=== PATIENT | female | born 1935 | race Caucasian/White ===

== ENCOUNTER 2016-10-29 20:04 | Inpatient (IN) | payer MEDICARE, BC ==
--- NOTE | ~2016-10-29 | DS ---
Discharge Summary [address] [place]. [address] NAME: SOCORRO HUGHES : 34 STATUS : ADM IN [facility]#: [id number] AGE: 81 ADM/REG DATE : 10/29/16 MR#: [id number] REPORT SERV DATE: 11/02/16 DICTATED BY: GABRIEL GUZMAN DATE: 11/02/16 REPORT STATUS : Draft TRANSCRIBED BY: MODL DATE: 11/02/16 ADMISSION DATE: 10/29/2016 DISCHARGE DATE: 11/02/2016 ADMITTING DIAGNOSIS: Subacute stroke. DISCHARGE DIAGNOSES: 1. No evidence of acute stroke. 2. Severe polyarticular osteoarthritis including hips, knees, and ankles including Charcot ankles bilaterally with reduced mobility. 3. Severe chronic anxiety. 4. Recent urinary tract infection, treated. 5. Hypertension. 6. Diet-controlled diabetes. 7. Hypothyroidism. 8. No evidence of seizure disorder, on long-standing chronic Dilantin and phenobarbital at subtherapeutic doses more for comfort than anything. 9. Distant history of upper GI bleed secondary to Dieulafoy's lesion. 10.Severe chronic anxiety. DISCHARGE PLAN: She was transferred to [facility]. DISCHARGE MEDICATION: She was started on aspirin 81 mg daily and atorvastatin 40 mg a day for prevention of stroke. She would continue vitamin D at 1000 units daily, docusate 100 mg daily, Lovenox 40 mg a day for two weeks, gabapentin 100 mg b.i.d., levothyroxine 100 mcg daily, Irene 180 mg daily, Mobic 7.5 mg daily previously prescribed by Dr. Ly, omeprazole 20 mg daily, phenobarbital 32.4 mg daily, Dilantin 100 mg daily, Tramadol q.6 h. p.r.n., valsartan HCT 80/12.5 daily, vitamin D 3000 units daily, and Tylenol p.r.n. HOSPITAL ADMISSION SUMMARY: An 81-year-old, white female, who has been living at home with maximum assistance of two caregivers 24 hours a day with chronic mobility, problems related to severe arthritis, and chronic anxiety who was recently in the office because of polyuria and nocturia. She had urinary tract infection and was on appropriate treatment. Over the several days prior to her admission, she had a marked deterioration in her mobility with some seeming acute right-sided weakness. Caregivers and family were concerned that she had a stroke and brought her to the emergency room for evaluation. See her previously handled admission note by Dr. Flores. LABORATORY DATA: Admission white count 6600, hemoglobin 11.4, hematocrit 33.5, INR 1.0. Sodium 141, potassium 3.8, BUN 13, creatinine 0.86. Magnesium normal. Liver functions normal. Troponin negative. TSH normal. Dilantin and phenobarbital were subtherapeutic as expected, B12 normal, folate normal, ammonia, level normal. Urinalysis was unremarkable. Cholesterol 217, HDL 79, LDL 117, and triglycerides 109. RADIOGRAPHIC STUDIES: Included CT of the head which showed moderate chronic changes but no Discharge Summary [address] [address] NAME: SOCORRO HUGHES : 34 STATUS : ADM IN [facility]#: [id number] AGE: 81 ADM/REG DATE : 10/29/16 MR#: [id number] REPORT SERV DATE: 11/02/16 DICTATED BY: GABRIEL GUZMAN DATE: 11/02/16 REPORT STATUS : Draft TRANSCRIBED BY: RUBÉN DATE: 11/02/16 acute findings. Chest x-ray only showed low lung volumes with atelectasis. Hip film and pelvis film showed no fracture. Carotid ultrasound showed grade 1 disease bilaterally. MRI of the head with MRA showed no evidence of hemorrhage or acute stroke with a negative MRA of the hughes of Keller. MRA of the neck was also unremarkable. HOSPITAL COURSE: The patient was admitted with seemingly fairly rapid weakness, predominantly right-sided, and the concern was that she was having a stroke. Radiographic studies did not suggest a stroke and her clinical course to me did not suggest a stroke. Aspirin and statin therapies were added to her baseline medications for prevention. Her primary problem is orthopedic in character with severe arthritis and limitations due to hip, knee, and ankle arthritis including Charcot ankles. Physical Therapy evaluated her and felt that she was not a candidate for inpatient rehab, but was more a candidate for alf rehab, and arrangements were made to transfer her to [facility] where she had been previously. In the past, she had made good enough progress to get back home with the assistance of sitters. Whether this would be accomplished in the future was unclear. The patient's mobility in the past had been limited by what was thought to be Parkinson's, and she underwent a neurologic evaluation by Dr. Vaca at [place]. A therapeutic trial of Sinemet during 2015 did not suggest an improvement, and it was not pursued further at that point. The patient has a long history of anxiety and often is agitated at night and screams out at night. In the distant past, she had been on Lexapro from psychiatrist Dr. Steele, but she has been off that for several years, and this was not restarted during this hospitalization but would be a consideration in the future. The patient recently had severe nocturia with culture documented urinary tract infection which was treated. I did not feel at this time that it was appropriate to start her on any anticholinergic therapy as it might aggravate her mental status. This would be a consideration in the future. At the time of discharge, the patient was at her mental baseline and physical limitations, and arrangements were made for a transfer as above. This was discussed with her power of revenue stamper, represented by her niece Machelle Mcintosh, and her phone number is [phone]. AMANDA/RUBÉN Gabriel Guzman M.D. / [id number] CC: Gabriel Guzman M.D.
[~2016-10-29 20:04] MED LIST: *UNABLE1; AFEDITAB60 MG PO; ASAB PO; CLARIT10 PO; D100 PO; DCN100 PO; DIABET1.25 PO; DIOVAN HCT PO; FERROUS SULF325 M1 PO; GLUCOSAMINE PO; INSNOVR SC; K500 PO; L40 PO; LEXAPRO10 PO; LEXAPRO5 MG PO; MAX25 PO; METAMUCIL CAN7 OZ PO; MICRO-K10 MEQ PO; MOBIC15 MG PO; MULTIPLE VIT PO; MULTIVITAMI1 PO; NEXIUM40 PO; NOVOPEN SC; OS500+D PO; PB30 PO; PHENOBARB32.4 MG OR; PHENOBARB32.4 MG PO; PHENOBARBITAL PO; PREV15 PO; PREV30 PO; SYN1 PO; ULTRACET PO; VITC500 PO; [UNRECOGNIZED DRUG - REMARK]; [UNRECOGNIZED DRUG - REMARK]; [UNRECOGNIZED DRUG - REMARK]
[2016-10-29 20:32] LABS: BASOPHILS 0.5 %; BASOPHILS ABSOLUTE 0.03 10/3/uL (0.0-0.16); EOSINOPHILS 5.6 %; EOSINOPHILS ABSOLUTE 0.37 10/3/uL (0.0-0.53); ER CBC TAT 0 Hrs 07 Mins; HEMOGLOBIN 11.4 g/dL (12.0-16.0); IMMATURE GRANULOCYTES 0.2 %; IMMATURE GRANULOCYTES ABSOLUTE 0.01 10/3/uL (0.0-0.11); LYMPHOCYTES 24.7 %; LYMPHOCYTES ABSOLUTE 1.63 10/3/uL (0.67-4.30); MEAN CORPUSCULAR HEMOGLOB 33.2 pg (26.0-34.0); MEAN PLATELET VOLUME 9.9 fL (9.2-13.0); MONOCYTES 14.1 %; MONOCYTES ABSOLUTE 0.93 10/3/uL (0.21-1.20); NEUTROPHILS 54.9 %; NEUTROPHILS ABSOLUTE 3.63 10/3/uL (2.02-8.40); PLATELET COUNT 183 10/3/uL (150-400); RBC DISTRIBUTION WIDTH 12.9 % (12.0-16.0); RED CELL COUNT 3.43 10/6/uL (4.0-5.6); WHITE BLOOD CELLS 6.6 10/3/uL (4.5-10.5)
[2016-10-29 20:33] LABS: HEMATOCRIT 33.5 % (36.0-48.0); MANUAL DIFF NO %; MEAN CORPUSCULAR VOLUME 97.7 fL (80-100)
[2016-10-29 20:40] LABS: PARTIAL THROMBO TIME 29.5 SEC (22.5-37.2); PROTIME (NOT ORD) 12.9 SEC (12.0-14.5)
[2016-10-29 21:12] LABS: ALBUMIN 3.5 G/DL (3.5-5.0); CALCIUM, SERUM 8.7 MG/DL (8.5-10.4); CHLORIDE, SERUM 100 MMOL/L (96-112); CO2 (CARBON DIOXIDE) 32 MMOL/L (24-34); CREATININE 0.86 MG/DL (0.55-1.02); DILANTIN (PHENYTOIN) 1.8 MCG/ML (10.0-20.0); GFR AFRICAN AMERICAN 73 ML/MIN (>=60); GFR NON AFRICAN AMERICAN 63 ML/MIN (>=60); GLUCOSE, SERUM 98 MG/DL (60-99); POTASSIUM, SERUM 3.8 MMOL/L (3.5-5.3); SGOT(AST) 10 U/L (5-40); SGPT(ALT) 15 U/L (5-65); SODIUM, SERUM 141 MMOL/L (135-148); TOTAL BILIRUBIN 0.3 MG/DL (0-1.2); TOTAL PROTEIN 6.8 G/DL (6.0-8.5); TROPONIN I <0.02 NG/ML (<0.05)
[2016-10-29 21:13] LABS: ALKALINE PHOSPHATASE 76 U/L (45-117); BUN (BLOOD UREA NITROGEN) 13 MG/DL (6-23); DIRECT BILIRUBIN < 0.1 MG/DL (0.0-0.4); INDIRECT BILIRUBIN(NOT ORDER) 0.2 MG/DL (0.1-0.9)
[2016-10-29 21:15] LABS: CHEST PAIN PROFILE TAT 0 Hrs 47 Mins
[2016-10-29 21:23] LABS: ASCORBIC ACID (UR NOT ORDER) 40 (NEG); BILIRUBIN, URINE NEGATIVE (NEG); ER URINALYSIS TAT 0 Hrs 07 Mins; KETONE, URINE NEGATIVE (NEG); LEUKOCYTE ESTERASE(NOT OR NEG (NEG); NITRITE (URINE) NEG (NEG); WBC (NOT ORDERED) (RFLEX) 1 (0-5)
[2016-10-29] MEDS ORDERED: ALLEGRA180 PO (22:41)
[2016-10-29] MEDS ORDERED: SYN1 PO (22:41)
[2016-10-29] MEDS ORDERED: PRILO PO (22:41)
[2016-10-29] MEDS ORDERED: PHENOBARB32.4 MG PO (22:42)
[2016-10-29] MEDS ORDERED: D100 PO (22:42)
[2016-10-29] MEDS ORDERED: DIOVAN HCT PO (22:42)
[2016-10-29] MEDS ORDERED: NEUR100 PO (22:43)
[2016-10-29] MEDS ORDERED: VITC500 PO (22:44)
[2016-10-29] MEDS ORDERED: IRON PO (22:44)
[2016-10-29] MEDS ORDERED: VITAMIN D3 PO (22:44)
[2016-10-29] MEDS ORDERED: DSS PO (22:45)
[2016-10-29] MEDS ORDERED: MOBIC7.5 PO (22:46)
[2016-10-29] MEDS ORDERED: ULTRAM50 PO (22:50)
[2016-10-29] MEDS ORDERED: TYLENOL PM PO (22:50)
[2016-10-29] MEDS ORDERED: ACET500CAP PO (22:51)
[2016-10-30 06:25] LABS: BASOPHILS 0.6 %; BASOPHILS ABSOLUTE 0.04 10/3/uL (0.0-0.16); EOSINOPHILS 5.3 %; EOSINOPHILS ABSOLUTE 0.36 10/3/uL (0.0-0.53); HEMOGLOBIN 11.2 g/dL (12.0-16.0); IMMATURE GRANULOCYTES 0.1 %; IMMATURE GRANULOCYTES ABSOLUTE 0.01 10/3/uL (0.0-0.11); LYMPHOCYTES 32.5 %; MEAN CORPUS HGB CONC 33.9 g/dL (32.0-36.0); MEAN CORPUSCULAR HEMOGLOB 33.2 pg (26.0-34.0); MEAN CORPUSCULAR VOLUME 97.9 fL (80-100); MEAN PLATELET VOLUME 9.6 fL (9.2-13.0); MONOCYTES 13.8 %; MONOCYTES ABSOLUTE 0.93 10/3/uL (0.21-1.20); NEUTROPHILS 47.7 %; NEUTROPHILS ABSOLUTE 3.22 10/3/uL (2.02-8.40); PLATELET COUNT 169 10/3/uL (150-400); RED CELL COUNT 3.37 10/6/uL (4.0-5.6); WHITE BLOOD CELLS 6.8 10/3/uL (4.5-10.5)
[2016-10-30 06:26] LABS: MANUAL DIFF NO %
[2016-10-30 06:48] LABS: BUN (BLOOD UREA NITROGEN) 10 MG/DL (6-23); CALCIUM, SERUM 8.9 MG/DL (8.5-10.4); CHLORIDE, SERUM 103 MMOL/L (96-112); CHOL/HDL RATIO(NOT ORDER) 2.7 (0-5); CHOLESTEROL 217 MG/DL (< 200); CO2 (CARBON DIOXIDE) 29 MMOL/L (24-34); CREATININE 0.71 MG/DL (0.55-1.02); FREE T4 1.12 NG/DL (0.76-1.46); GFR AFRICAN AMERICAN 92 ML/MIN (>=60); GFR NON AFRICAN AMERICAN 79 ML/MIN (>=60); GLUCOSE, SERUM 87 MG/DL (60-99); HDL CHOLESTEROL 79 MG/DL (> 49); LDL CHOLESTEROL 117 MG/DL (< 130); NON-HDL CHOLESTEROL 138 MG/DL (< 160); POTASSIUM, SERUM 3.9 MMOL/L (3.5-5.3); SODIUM, SERUM 142 MMOL/L (135-148); TRIGLYCERIDE 109 MG/DL (< 150); ULTRASENSITIVE TSH 0.959 MCIU/ML (0.358-3.740)
[2016-10-31 05:32] LABS: BASOPHILS 0.5 %; BASOPHILS ABSOLUTE 0.03 10/3/uL (0.0-0.16); EOSINOPHILS 3.4 %; EOSINOPHILS ABSOLUTE 0.19 10/3/uL (0.0-0.53); HEMATOCRIT 32.4 % (36.0-48.0); HEMOGLOBIN 11.2 g/dL (12.0-16.0); IMMATURE GRANULOCYTES 0.4 %; IMMATURE GRANULOCYTES ABSOLUTE 0.02 10/3/uL (0.0-0.11); LYMPHOCYTES 26.5 %; LYMPHOCYTES ABSOLUTE 1.48 10/3/uL (0.67-4.30); MANUAL DIFF NO %; MEAN CORPUS HGB CONC 34.6 g/dL (32.0-36.0); MEAN CORPUSCULAR HEMOGLOB 33.5 pg (26.0-34.0); MEAN PLATELET VOLUME 9.7 fL (9.2-13.0); MONOCYTES 10.9 %; MONOCYTES ABSOLUTE 0.61 10/3/uL (0.21-1.20); NEUTROPHILS 58.3 %; NEUTROPHILS ABSOLUTE 3.26 10/3/uL (2.02-8.40); PLATELET COUNT 174 10/3/uL (150-400); RBC DISTRIBUTION WIDTH 12.5 % (12.0-16.0); RED CELL COUNT 3.34 10/6/uL (4.0-5.6); WHITE BLOOD CELLS 5.6 10/3/uL (4.5-10.5)
[2016-10-31 06:07] LABS: ALBUMIN 3.1 G/DL (3.5-5.0); ALKALINE PHOSPHATASE 67 U/L (45-117); BUN (BLOOD UREA NITROGEN) 7 MG/DL (6-23); CALCIUM, SERUM 8.9 MG/DL (8.5-10.4); CHLORIDE, SERUM 104 MMOL/L (96-112); CO2 (CARBON DIOXIDE) 29 MMOL/L (24-34); CPK 48 U/L (0-200); CREATININE 0.68 MG/DL (0.55-1.02); GFR AFRICAN AMERICAN 94 ML/MIN (>=60); GFR NON AFRICAN AMERICAN 81 ML/MIN (>=60); GLUCOSE, SERUM 88 MG/DL (60-99); POTASSIUM, SERUM 3.9 MMOL/L (3.5-5.3); SGOT(AST) 11 U/L (5-40); SGPT(ALT) 13 U/L (5-65); SODIUM, SERUM 141 MMOL/L (135-148); TOTAL BILIRUBIN 0.2 MG/DL (0-1.2); TOTAL PROTEIN 6.1 G/DL (6.0-8.5)
[2016-10-31 06:08] LABS: FOLATE 19.9 NG/ML (>5.2)
[2016-11-12] MEDS ORDERED: ASAB PO (12:43)
[2016-11-12] MEDS ORDERED: LIPITOR40 PO (12:44)
[2016-11-12] MEDS ORDERED: VITAMIN D1000 UNI1 PO (12:45)
[2016-11-12] MEDS ORDERED: LOVENOX40 SC (12:46)
[2016-11-12] MEDS ORDERED: THERGRANM PO (12:48)
== END 2016-11-03 13:29 | DRG 74 ==
LOC: ER 20:04 → 1SO 23:55
PROVIDERS: Emergency Medicine; Internal Medicine
DX: E11.610 Type 2 diabetes mellitus with diabetic neuropathic arthropathy (principal); N39.0 Urinary tract infection, site not specified; R13.10 Dysphagia, unspecified; I10 Essential (primary) hypertension; E66.9 Obesity, unspecified; Z68.30 Body mass index [BMI] 30.0-30.9, adult; M16.0 Bilateral primary osteoarthritis of hip; M17.0 Bilateral primary osteoarthritis of knee; M19.072 Primary osteoarthritis, left ankle and foot; M19.071 Primary osteoarthritis, right ankle and foot; E03.9 Hypothyroidism, unspecified; F41.9 Anxiety disorder, unspecified; Z79.1 Long term (current) use of non-steroidal anti-inflammatories (NSAID); Z79.82 Long term (current) use of aspirin; Z79.899 Other long term (current) drug therapy
CPT/HCPCS: 70450; 70544; 70547; 70551; 71010; 72170; 73502-RT; 80048; 80053; 80061; 80076; 80184; 80185; 81001; 82085; 82140; 82550; 82607; 82746; 82962; 83735; 84439; 84443; 84484; 85025; 85610; 85730; 92523-GN; 92610-GN; 93005; 93880; 97162-GP; 97530-GP; 99285; A9270-GY; G8978-CM-GP; G8979-CM-GP; G8996-CJ-GN; G8997-CJ-GN; G8998-CJ-GN; G9162-CK-GN; G9163-CK-GN; G9164-CK-GN; J3480

== ENCOUNTER 2016-11-12 13:10 | Inpatient (IN) | payer MEDICARE, BC ==
--- NOTE | ~2016-11-12 | DS ---
Discharge Summary [address] [place]. [address] NAME: SOCORRO HUGHES : 34 STATUS : DIS IN PAT#: [id number] AGE: 81 ADM/REG DATE : 11/12/16 MR#: [id number] REPORT SERV DATE: 11/19/16 DICTATED BY: MINH GALAVIZ DATE: 11/18/16 REPORT STATUS : Draft TRANSCRIBED BY: MODGabriel DATE: 11/18/16 ADMISSION DATE: 11/12/2016 DISCHARGE DATE: 11/18/2016 PROCEDURES DONE: 1. On 11/12/2016 KUB: Appropriate position of enteric tube. 2. On 11/13/2016 chest x-ray: Interval placement of right upper extremity PICC line with tip over the SVC near the cavoatrial junction. Diminished lung volumes with mild left basal atelectasis. 3. On 11/14/2016 chest x-ray: Low lung volumes. Bibasilar atelectasis. Chest is similar to previous study. 4. On 11/14/2016 ultrasound mesenteric: No Doppler evidence of enteric ischemia. 5. On 11/16/2016 ultrasound of upper extremity: The patient was uncooperative with examination. Only limited information was obtained. Right subclavian vein is patent. There is thrombus in the proximal cephalic vein. 6. On 11/12/2016 operative report: EGD and colonoscopy. Findings: Dieulafoy's lesion in the gastric fundus, status post hemostatic therapy. Colonoscopy. There is severe patchy ischemic appearing colitis from rectum and descending colon. There is sigmoid diverticulosis. Recommendation: Start Levaquin and Flagyl. CONSULTATION: Aaron Steele M.D. for GI. REASON FOR ADMISSION: Melanotic stools with clots. HISTORY OF HOSPITAL STAY: An 81-year-old white female with a past medical history of seizures, hypertension, hemorrhoids, history of GI bleed, diabetes, hypothyroid, history of right total hip arthroplasty, degenerative joint disease, severe chronic anxiety, deconditioning, presenting with melanotic stools with clots. The patient was admitted for further evaluation of GI bleed. The patient underwent EGD as well as colonoscopy. The patient did have a Dieulafoy's lesion with hemostatic therapy. The patient also did receive transfusion. H and H have been stable status post transfusion. In addition, the patient also had ischemic colitis which was being treated with Levaquin and Flagyl. The patient also developed a UTI which was E. coli sensitive to Zosyn. Levaquin and Flagyl were D/C'd and switched to Zosyn both for the UTI as well as occult ischemic colitis. Nonetheless, family was very concerned with the patient's overall prognosis. With the patient's advanced age and comorbid conditions, family was very inclined/receipted to [facility]. Discussions went back and forth and eventually the family has agreed to take the patient back home with hospice. DISPOSITION: The patient is feeling fine, no complaint. ACTIVITY: As tolerated. DIET: Regular. INSTRUCTIONS UPON DISCHARGE: None, the patient will be followed by [facility]. Discharge Summary [address] [place]. [address] NAME: SOCORRO HUGHES : 34 STATUS : DIS IN PAT#: [id number] AGE: 81 ADM/REG DATE : 11/12/16 MR#: [id number] REPORT SERV DATE: 11/19/16 DICTATED BY: MINH GALAVIZ DATE: 11/18/16 REPORT STATUS : Draft TRANSCRIBED BY: RUBÉN DATE: 11/18/16 MEDICATIONS UPON DISCHARGE: Management as per [facility]. DIAGNOSES UPON DISCHARGE: 1. Melanotic stools with clots secondary to gastrointestinal bleed. 2. Gastrointestinal bleed secondary to ischemic colitis. 3. Hypotension secondary to melanotic stools with clots secondary to gastrointestinal bleed and gastrointestinal bleed secondary to ischemic colitis. 4. Hypovolemic shock secondary to melanotic stools with clots secondary to gastrointestinal bleed and gastrointestinal bleed secondary to ischemic colitis. 5. Diabetes type 2. 6. Hypothyroid. 7. Hypertension. 8. Seizures. 9. Dementia with sundowning. 10.Deconditioning. 11.History of gastrointestinal bleed. 12.History of right total hip arthroplasty in 2009. 13.History of Parkinson's. 14.History of severe chronic anxiety. 15.Deconditioning. ANGELY/RUBÉN iMnh Galaviz MD / [id number] CC: Minh Galaviz MD
--- NOTE | ~2016-11-12 | OP ---
Record Of Operation [facility] [address] [place]. [address] NAME: SOCORRO HUGHES : 34 STATUS : ADM IN PAT#: [id number] AGE: 81 ADM/REG DATE : 11/12/16 MR#: [id number] REPORT SERV DATE: 11/13/16 DICTATED BY: KARLOS RAUSCH DATE: 11/13/16 REPORT STATUS : Draft TRANSCRIBED BY: MODGabriel DATE: 11/13/16 DATE OF PROCEDURE: GI PROCEDURE NOTE PROCEDURE: Esophagogastroduodenoscopy with bleeding control, colonoscopy with biopsy. INDICATION FOR THE PROCEDURE: GI bleed. RETAIL BRANCH MANAGER: Karlos Rausch M.D. MEDICATIONS: MAC. The risks of the procedure were made aware to the patient's family and consisted of medication reaction, bleeding, perforation, and aspiration. PROCEDURE IN DETAIL: After informed consent and appropriate sedation, the upper endoscope was inserted into the oropharynx, down the esophagus, and into the stomach. The scope was advanced to the third portion of the duodenum. The duodenal mucosa was normal. The pylorus was normal. The stomach was normal on advancement of the scope. Retroflexion was performed and there was fresh blood identified. There was a large caliber vessel noted in the fundus. There was no mucosal defect such as ulcer noted. This was consistent with a Dieulafoy lesion. Epinephrine was injected around the vessel, this slowed the bleeding down. Two hemostatic clips were placed; however, there continued to be some oozing of blood. Further epinephrine was injected. A total of 5 mL was injected. There were still some minor oozing. Bipolar probe was then used for coaptation of the edge, where there was still oozing of blood identified. After this was complete, there was cessation of bleeding. The site was monitored for several minutes thereafter and no further bleeding was identified. The area was injected with Michelle ink for future reference. FINDINGS: 1. Dieulafoy's lesion in the gastric fundus, status post hemostatic therapy. 2. Colonoscopy. The patient was positioned and the rectal exam was performed, it was unremarkable. The colonoscope was inserted into the rectum and there was an immediate evidence of severe ischemic-appearing colitis. The scope was advanced to the cecum. The appendiceal orifice and cecal valve were identified. The scope was slowly withdrawn with good visualization. The quality of preparation was good. There was evidence of ischemic-appearing colitis from the descending colon to the rectum, it was patchy. It was severe in the rectum. Multiple biopsies were obtained. Few diverticula were also noted in the sigmoid colon. Findings;. a. Severe patchy ischemic-appearing colitis from rectum and descending colon biopsied. b. Sigmoid diverticulosis. RECOMMENDATIONS: Start Levaquin and Flagyl. Record Of Operation [address] [place]. [address] NAME: SOCORRO HUGHES : 34 STATUS : ADM IN PAT#: [id number] AGE: 81 ADM/REG DATE : 11/12/16 MR#: [id number] REPORT SERV DATE: 11/13/16 DICTATED BY: KARLOS RAUSCH DATE: 11/13/16 REPORT STATUS : Draft TRANSCRIBED BY: RUBÉN DATE: 11/13/16 ART/RUBÉN Karlos Rausch M.D. / [id number] CC: Deneen Britt MD
--- NOTE | ~2016-11-12 | CN ---
Consultation Report [facility] [address] [place]. [address] NAME: SOCORRO HUGHES : 34 STATUS : ADM IN PAT#: [id number] AGE: 81 ADM/REG DATE : 11/12/16 MR#: [id number] REPORT SERV DATE: 11/12/16 DICTATED BY: KARLOS RAUSCH DATE: 11/12/16 REPORT STATUS : Draft TRANSCRIBED BY: MODL DATE: 11/12/16 GI CONSULTATION DATE OF CONSULTATION: 11/12/2016 CONSULTING PHYSICIAN: Karlos Rausch MD REASON FOR CONSULTATION: GI bleed. HISTORY OF PRESENT ILLNESS: The patient is an 81-year-old female who currently resides at an [facility]patient [facility], who was brought to the emergency room with passage of bloody stools. The family describes the stools as bright, dark red with clots. In the emergency room, she was found to be hypotensive with blood pressure of 86/31. Blood work showed a hemoglobin of 5.6. She was resuscitated with 2 units of packed red blood cells and IV fluids with a resultant rise in her systolic blood pressure to greater than 110. The patient had a recent admission to this hospital with an admitting diagnosis of altered mental status, acute, suspicious for stroke; however, upon investigation, there was no evidence of an acute stroke noted. The family does note that since that last admission her mentation has not returned to normal. While she was at the rehabilitation facility, she was on Lovenox for DVT prophylaxis. The family relates that she has had issues with GI bleeding in the past every time she has been on anticoagulant therapy. Per review of the chart, there is note of a history of upper GI bleeding secondary to Dieulafoy lesion in the remote past. It is unknown as to when the patient has undergone prior colonoscopy. The patient is not able to provide much history at present. PAST MEDICAL HISTORY: Significant for history of seizure disorder, hypertension, history of GI bleed, diabetes, hypothyroidism, degenerative joint disease, dementia versus Parkinson's, anxiety, pseudogout, arthritis, deconditioning, GERD. ALLERGIES: SULFA, MORPHINE, CODEINE, HYDROCODONE, WARFARIN, CEREBYX. HOME MEDICATIONS: Tylenol, aspirin 81 mg daily, atorvastatin, vitamin D, docusate, Lovenox, Irene, Neurontin, Synthroid, Mobic, Theragran, Prilosec, phenobarbital, Dilantin, Ultram p.r.n., Diovan hydrochlorothiazide. FAMILY HISTORY: No reported GI malignancies. SOCIAL HISTORY: Currently residing at a rehab facility. No tobacco or alcohol use per family. REVIEW OF SYSTEMS: As in HPI. Otherwise, currently not able to obtain from the patient. PHYSICAL EXAMINATION: Consultation Report [address] [place]. [address] NAME: SOCORRO HUGHES : 34 STATUS : ADM IN PAT#: [id number] AGE: 81 ADM/REG DATE : 11/12/16 MR#: [id number] REPORT SERV DATE: 11/12/16 DICTATED BY: KARLOS RAUSCH DATE: 11/12/16 REPORT STATUS : Draft TRANSCRIBED BY: RUBÉN DATE: 11/12/16 GENERAL: The patient is disoriented and not able to provide any history. HEENT: Atraumatic, normocephalic. Anicteric sclerae. NECK: Supple. CARDIOVASCULAR: Regular rhythm. LUNGS: Decreased breath sounds at bilateral bases. ABDOMEN: Soft, nondistended, nontender. Positive bowel sounds. No hepatosplenomegaly. EXTREMITIES: No cyanosis or clubbing. LABORATORY DATA: BUN is 40, creatinine is 1.06. White count is 15.9, hemoglobin 5.6. INR 1.3. IMPRESSION AND PLAN: Gastrointestinal bleed. Difficult to say whether this is an upper versus lower source. She is on several NSAIDs and also PPI as such we will continue to hold antiplatelets and anticoagulants. Transfuse as necessary. Begin Protonix IV and begin bowel prep in anticipation of an upper and lower endoscopy in the morning. SB/RUBÉN Karlos Rausch M.D. / [id number] CC: Deneen Britt MD
--- NOTE | ~2016-11-12 | HP ---
History And Physical [id number] [place]. [address] NAME: SOCORRO HUGHES : 34 STATUS : ADM IN [facility]#: [id number] AGE: 81 ADM/REG DATE : 11/12/16 MR#: [id number] REPORT SERV DATE: 11/12/16 DICTATED BY: NEAL NARVAEZ DATE: 11/12/16 REPORT STATUS : Draft TRANSCRIBED BY: MODL DATE: 11/12/16 DATE OF ADMISSION: 11/12/2016 HISTORY OF PRESENT ILLNESS: This is an 81-year-old patient that I was asked to admit for GI bleed. The patient currently resides at the [facility] and was transported to the emergency room when she was noted not to be feeling well and had dark stools and was passing dark blood with clots at the facility. The patient was evaluated in the emergency room and upon arrival there, had a blood pressure of 86/31. Hemoglobin in the emergency room was 5.6. The patient was typed and crossed and transfused 2 units of blood. She also had a PICC line placed and was volume resuscitated. Currently her blood pressure is 117. The patient calls out, does not necessarily answer questions consistently and so most of her history was obtained from her power of litigation attorney associate and review of the medical records from previous admissions. We also reviewed the information sent from the [facility] facility. The patient also had some complaints about regarding some abdominal cramping but she has had no nausea or vomiting. No documented fevers and no complaints of chest pain. ALLERGIES: HER ALLERGIES ARE TO SULFA, MORPHINE, CODEINE, HYDROCODONE, WARFARIN, CEREBYX, THE REACTION TO THIS IS UNKNOWN. SHE ALSO LISTS ADVERSE REACTION TO CIPROFLOXACIN AND ASPIRIN WHICH IS ASSOCIATED WITH NAUSEA. MEDICATIONS: On an outpatient basis are Tylenol 500 mg q.6 hours p.r.n.; aspirin 81 mg p.o. daily; atorvastatin 40 mg at bedtime; vitamin D a 1000 units daily; docusate sodium 1 mg at bedtime; Lovenox 40 mg subcu daily; Irene 180 mg daily; Neurontin 100 mg t.i.d.; Synthroid 100 mcg p.o. before breakfast; Mobic 7.5 mg at bedtime; Theragran; Prilosec 20 mg before breakfast; phenobarbital 32.4 mg daily; Dilantin 100 mg p.o. daily; Ultram 50 mg p.o. q.6 hours p.r.n.; and Diovan hydrochlorothiazide 80/12.5 mg p.o. daily. PAST MEDICAL HISTORY: 1. Significant for seizure history. 2. Hypertension. 3. Hemorrhoids. 4. GI bleed. 5. Diabetes. 6. Hypothyroidism. 7. She is status post hysterectomy. 8. Broken jaw 2008. 9. Right total hip in 2009. 10.DJD. 11.Possible underlying dementia versus Parkinson's. 12.History of urinary tract infection associated with encephalopathy. 13.Severe chronic anxiety. 14.Possible previous pseudogout. 15.Polyarticular advanced arthritis including bilateral arthritis of knees and Charcot ankles. 16.Deconditioning. 17.History of distant humerus fracture. History And Physical [address] [place]. [address] NAME: SOCORRO HUGHES NEAL : 34 STATUS : ADM IN [facility]#: [id number] AGE: 81 ADM/REG DATE : 11/12/16 MR#: [id number] REPORT SERV DATE: 11/12/16 DICTATED BY: NEAL NARVAEZ DATE: 11/12/16 REPORT STATUS : Draft TRANSCRIBED BY: RUBÉN DATE: 11/12/16 18.Gastroesophageal reflux disease. SOCIAL HISTORY: The patient currently resides at [facility]. There is no documented history of smoking or alcohol abuse. FAMILY HISTORY: Unobtainable at this time from the patient and there is no good documentation of any family history in the charts that I can find. We will need to confirm that with the family when available. REVIEW OF SYSTEMS: Could not be obtained from the patient although she denies any chest pain at this time. PHYSICAL EXAMINATION: GENERAL: The patient calls out, does not always follow commands, can say her name but is disoriented to place and time. VITAL SIGNS: Currently her heart rate is 99 and her blood pressure is 101/51, respiratory rate is 14 to 16, and O2 saturation is 90 to 94% on 2 L. The patient is afebrile. She appears pale. SKIN: Warm and dry. HEENT: Head is atraumatic and normocephalic. Pupils are sluggishly reactive. Sclerae anicteric. Conjunctivae pink. Nasal mucosa within normal limits. Oral mucosa is slightly dry. Tongue is midline. NECK: Supple without JVD, lymphadenopathy, or thyromegaly. LUNG: Exam is notable for markedly decreased breath sounds at the bases. No wheezing is heard. CARDIAC: Exam reveals a regular rate and rhythm without any significant murmurs. BREASTS: Symmetrical without masses. ABDOMEN: Obese, soft. There is no pain to palpation of the epigastric area. No organosplenomegaly is appreciated. No masses felt. She has a Garcia catheter in place. There also is notable bruising in the abdomen more than likely secondary for subcutaneous Lovenox. RECTAL: Deferred. EXTREMITIES: Her lower extremities have edema but no clubbing. There are Charcot joints noted as well as arthritic changes of her toes. Pulses are palpable but diminished in the lower extremities. The upper extremities are notable for chronic skin changes, bruising but no open sores. NEUROLOGIC EXAM: Overall cranial nerves 2 through 12 are intact. There are no focal findings on her neurologic exam. LABS: Sodium 146, potassium 4.0, chloride 110, bicarb 26, BUN 40, creatinine 1.06, glucose 151, calcium is 7.2. LFTs are within normal limits. White cell count is 15.9, hemoglobin 5.6, hematocrit 16.2. INR is 1.3. EKG shows a normal sinus rhythm. ASSESSMENT AND PLAN: 1. This is an 81-year-old patient, who presents from the [facility] [place] with what appears to be a possibly upper GI bleed. She has acute blood loss anemia and was symptomatic with hypotension, responded well to IV fluid hydration and History And Physical [address] [place]. [address] NAME: SOCORRO HUGHES NEAL : 34 STATUS : ADM IN PAT#: [id number] AGE: 81 ADM/REG DATE : 11/12/16 MR#: [id number] REPORT SERV DATE: 11/12/16 DICTATED BY: NEAL NARVAEZ DATE: 11/12/16 REPORT STATUS : Draft TRANSCRIBED BY: MODGabriel DATE: 11/12/16 blood transfusion. She has been started on Protonix drip which will be continued. Dr. Steele, Gastroenterology, has seen the patient and plans to do an EGD and colonoscopy in the morning. Therefore she will be kept n.p.o., bowel prep as per GI. 2. Reported to have type 2 diabetes mellitus, so will at least have a sliding insulin scale level 1. 3. Hypothyroidism. Continue Synthroid but we will change that to IV. 4. History of seizures although she is on a very low dose of Dilantin which we will check a level but I expect it slow, it seems soft diagnosis as far as having seizures although her power of litigation attorney associate said she does have a history of it. We will need to closely monitor her. 5. She has a history of gastroesophageal reflux disease and so we will continue the Protonix and further eval as per Gastroenterology. 6. Hypertension. Hold antihypertensive medications since the patient was hypotensive when she came in. 7. Possible dementia versus Parkinson's. Use Precedex if needed if the patient becomes extremely agitated. 8. Neuropathic pain. We will continue Neurontin when able to take p.o. 9. Hold DVT prophylaxis. Can apply SCDs until such time the patient is stable enough to have DVT prophylaxis. Total time spent with the patient commenced at 6:30 p.m. and ended at 7:33 p.m. /MODL Neal Narvaez M.D. / [id number] CC: Deneen Britt MD
[2016-11-12 12:56] LABS: BASOPHILS 0.1 %; BASOPHILS ABSOLUTE 0.02 10/3/uL (0.0-0.16); EOSINOPHILS 0 %; HEMATOCRIT 16.2 % (36.0-48.0); HEMOGLOBIN 5.6 g/dL (12.0-16.0); IMMATURE GRANULOCYTES 0.4 %; IMMATURE GRANULOCYTES ABSOLUTE 0.06 10/3/uL (0.0-0.11); LYMPHOCYTES 6.9 %; MEAN CORPUS HGB CONC 34.6 g/dL (32.0-36.0); MEAN CORPUSCULAR HEMOGLOB 33.3 pg (26.0-34.0); MEAN CORPUSCULAR VOLUME 96.4 fL (80-100); MEAN PLATELET VOLUME 9.7 fL (9.2-13.0); MONOCYTES 7.4 %; MONOCYTES ABSOLUTE 1.18 10/3/uL (0.21-1.20); NEUTROPHILS 85.2 %; NEUTROPHILS ABSOLUTE 13.56 10/3/uL (2.02-8.40); PLATELET COUNT 236 10/3/uL (150-400); RBC DISTRIBUTION WIDTH 13.3 % (12.0-16.0); RED CELL COUNT 1.68 10/6/uL (4.0-5.6); WHITE BLOOD CELLS 15.9 10/3/uL (4.5-10.5)
[2016-11-12 12:58] LABS: MANUAL DIFF NO %
[2016-11-12 13:05] LABS: INTERNATIONAL NORMAL RATI 1.3 UNITS (-); PARTIAL THROMBO TIME 27.6 SEC (22.5-37.2)
[2016-11-12 13:08] LABS: PROTIME (NOT ORD) 15.7 SEC (12.0-14.5)
[~2016-11-12 13:10] MED LIST changes: +ACET500CAP PO; +ALLEGRA180 PO; +DSS PO; +IRON PO; +LIPITOR40 PO; +LOVENOX40 SC; +MOBIC7.5 PO; +NEUR100 PO; +PRILO PO; +THERGRANM PO; +TYLENOL PM PO; +ULTRAM50 PO; +VITAMIN D1000 UNI1 PO; +VITAMIN D3 PO
[2016-11-12 13:11] LABS: A/G RATIO 1.2 (0.7-1.9); ALBUMIN 2.4 G/DL (3.5-5.0); ALKALINE PHOSPHATASE 53 U/L (45-117); BUN (BLOOD UREA NITROGEN) 40 MG/DL (6-23); CALCIUM, SERUM 7.2 MG/DL (8.5-10.4); CHLORIDE, SERUM 110 MMOL/L (96-112); CO2 (CARBON DIOXIDE) 26 MMOL/L (24-34); CREATININE 1.06 MG/DL (0.55-1.02); GFR AFRICAN AMERICAN 57 ML/MIN (>=60); GFR NON AFRICAN AMERICAN 49 ML/MIN (>=60); GLUCOSE, SERUM 151 MG/DL (60-99); SGOT(AST) 13 U/L (5-40); SGPT(ALT) 18 U/L (5-65); SODIUM, SERUM 146 MMOL/L (135-148); TOTAL BILIRUBIN 0.2 MG/DL (0-1.2); TOTAL PROTEIN 4.4 G/DL (6.0-8.5)
[2016-11-12 20:27] LABS: DILANTIN (PHENYTOIN) 1.5 MCG/ML (10.0-20.0)
[2016-11-12 21:56] LABS: HEMATOCRIT 21.3 % (36.0-48.0); HEMOGLOBIN 7.4 g/dL (12.0-16.0)
[2016-11-13 05:20] LABS: BASOPHILS 0.1 %; BASOPHILS ABSOLUTE 0.02 10/3/uL (0.0-0.16); EOSINOPHILS 0 %; HEMOGLOBIN 8.4 g/dL (12.0-16.0); IMMATURE GRANULOCYTES 0.3 %; IMMATURE GRANULOCYTES ABSOLUTE 0.07 10/3/uL (0.0-0.11); LYMPHOCYTES 14.9 %; MEAN CORPUS HGB CONC 34.3 g/dL (32.0-36.0); MEAN CORPUSCULAR HEMOGLOB 30.5 pg (26.0-34.0); MEAN PLATELET VOLUME 10.7 fL (9.2-13.0); MONOCYTES 11.4 %; MONOCYTES ABSOLUTE 2.37 10/3/uL (0.21-1.20); NEUTROPHILS 73.3 %; NEUTROPHILS ABSOLUTE 15.31 10/3/uL (2.02-8.40); PLATELET COUNT 190 10/3/uL (150-400); WHITE BLOOD CELLS 20.9 10/3/uL (4.5-10.5)
[2016-11-13 05:21] LABS: HEMATOCRIT 24.5 % (36.0-48.0); MANUAL DIFF NO %; MEAN CORPUSCULAR VOLUME 89.1 fL (80-100); RBC DISTRIBUTION WIDTH 17.9 % (12.0-16.0); RED CELL COUNT 2.75 10/6/uL (4.0-5.6)
[2016-11-13 05:32] LABS: BUN (BLOOD UREA NITROGEN) 47 MG/DL (6-23); CALCIUM, SERUM 7.3 MG/DL (8.5-10.4); CHLORIDE, SERUM 108 MMOL/L (96-112); CO2 (CARBON DIOXIDE) 28 MMOL/L (24-34); CREATININE 1.05 MG/DL (0.55-1.02); GFR AFRICAN AMERICAN 57 ML/MIN (>=60); GFR NON AFRICAN AMERICAN 49 ML/MIN (>=60); GLUCOSE, SERUM 149 MG/DL (60-99); POTASSIUM, SERUM 3.4 MMOL/L (3.5-5.3); SODIUM, SERUM 147 MMOL/L (135-148)
[2016-11-13 09:38] LABS: ASCORBIC ACID (UR NOT ORDER) NEG (NEG); BILIRUBIN, URINE NEGATIVE (NEG); KETONE, URINE NEGATIVE (NEG); LEUKOCYTE ESTERASE(NOT OR LARGE (NEG); WBC (NOT ORDERED) (RFLEX) 124 (0-5)
[2016-11-13 10:20] LABS: HEMATOCRIT 26.4 % (36.0-48.0); HEMOGLOBIN 9.2 g/dL (12.0-16.0)
[2016-11-13 10:29] LABS: POTASSIUM, SERUM 4.1 MMOL/L (3.5-5.3)
[2016-11-13 11:01] LABS: PROCALCITONIN 0.22 ng/mL (<0.5)
[2016-11-13 17:06] LABS: HEMATOCRIT 23.9 % (36.0-48.0); HEMOGLOBIN 8.3 g/dL (12.0-16.0)
[2016-11-13 22:44] LABS: HEMATOCRIT 25.4 % (36.0-48.0); HEMOGLOBIN 8.5 g/dL (12.0-16.0)
[2016-11-14 04:36] LABS: HEMOGLOBIN 7.7 g/dL (12.0-16.0)
[2016-11-14 04:37] LABS: HEMATOCRIT 22.3 % (36.0-48.0)
[2016-11-14 04:47] LABS: CALCIUM, SERUM 7.9 MG/DL (8.5-10.4); CHLORIDE, SERUM 112 MMOL/L (96-112); CO2 (CARBON DIOXIDE) 28 MMOL/L (24-34); GFR AFRICAN AMERICAN 80 ML/MIN (>=60); GFR NON AFRICAN AMERICAN 69 ML/MIN (>=60); PHOSPHORUS, SERUM 2.1 MG/DL (2.5-4.5); POTASSIUM, SERUM 3.6 MMOL/L (3.5-5.3); SODIUM, SERUM 148 MMOL/L (135-148)
[2016-11-14 04:48] LABS: BUN (BLOOD UREA NITROGEN) 29 MG/DL (6-23); GLUCOSE, SERUM 104 MG/DL (60-99)
[2016-11-14 10:56] LABS: HEMATOCRIT 21.1 % (36.0-48.0)
[2016-11-14 18:28] LABS: HEMOGLOBIN 8.5 g/dL (12.0-16.0)
[2016-11-14 22:13] LABS: HEMATOCRIT 24.7 % (36.0-48.0); HEMOGLOBIN 8.2 g/dL (12.0-16.0)
[2016-11-15 05:05] LABS: BASOPHILS 0.3 %; BASOPHILS ABSOLUTE 0.03 10/3/uL (0.0-0.16); EOSINOPHILS 0.8 %; EOSINOPHILS ABSOLUTE 0.07 10/3/uL (0.0-0.53); HEMATOCRIT 25.9 % (36.0-48.0); HEMOGLOBIN 8.5 g/dL (12.0-16.0); IMMATURE GRANULOCYTES 0.2 %; IMMATURE GRANULOCYTES ABSOLUTE 0.02 10/3/uL (0.0-0.11); LYMPHOCYTES 27.4 %; LYMPHOCYTES ABSOLUTE 2.47 10/3/uL (0.67-4.30); MANUAL DIFF NO %; MEAN CORPUS HGB CONC 32.8 g/dL (32.0-36.0); MEAN CORPUSCULAR HEMOGLOB 29.6 pg (26.0-34.0); MEAN CORPUSCULAR VOLUME 90.2 fL (80-100); MONOCYTES 10.3 %; MONOCYTES ABSOLUTE 0.93 10/3/uL (0.21-1.20); PLATELET COUNT 145 10/3/uL (150-400); RBC DISTRIBUTION WIDTH 21.6 % (12.0-16.0); RED CELL COUNT 2.87 10/6/uL (4.0-5.6)
[2016-11-15 05:18] LABS: CHLORIDE, SERUM 112 MMOL/L (96-112); CO2 (CARBON DIOXIDE) 24 MMOL/L (24-34); CREATININE 0.66 MG/DL (0.55-1.02); GFR AFRICAN AMERICAN 95 ML/MIN (>=60); GFR NON AFRICAN AMERICAN 82 ML/MIN (>=60); POTASSIUM, SERUM 3.8 MMOL/L (3.5-5.3); SODIUM, SERUM 149 MMOL/L (135-148)
[2016-11-15 05:20] LABS: BUN (BLOOD UREA NITROGEN) 19 MG/DL (6-23); GLUCOSE, SERUM 75 MG/DL (60-99)
[2016-11-15 10:01] LABS: HEMATOCRIT 27.6 % (36.0-48.0); HEMOGLOBIN 9.1 g/dL (12.0-16.0)
[2016-11-15 16:07] LABS: HEMATOCRIT 27.2 % (36.0-48.0)
[2016-11-15 22:30] LABS: HEMATOCRIT 26.8 % (36.0-48.0); HEMOGLOBIN 8.6 g/dL (12.0-16.0)
[2016-11-16 05:27] LABS: BASOPHILS 0.2 %; BASOPHILS ABSOLUTE 0.02 10/3/uL (0.0-0.16); EOSINOPHILS 0.9 %; EOSINOPHILS ABSOLUTE 0.07 10/3/uL (0.0-0.53); HEMATOCRIT 28.4 % (36.0-48.0); HEMOGLOBIN 9.4 g/dL (12.0-16.0); IMMATURE GRANULOCYTES 0.2 %; IMMATURE GRANULOCYTES ABSOLUTE 0.02 10/3/uL (0.0-0.11); LYMPHOCYTES 26.7 %; LYMPHOCYTES ABSOLUTE 2.19 10/3/uL (0.67-4.30); MEAN CORPUS HGB CONC 33.1 g/dL (32.0-36.0); MEAN CORPUSCULAR VOLUME 90.7 fL (80-100); MEAN PLATELET VOLUME 9.3 fL (9.2-13.0); MONOCYTES 10.5 %; MONOCYTES ABSOLUTE 0.86 10/3/uL (0.21-1.20); NEUTROPHILS 61.5 %; NEUTROPHILS ABSOLUTE 5.04 10/3/uL (2.02-8.40); PLATELET COUNT 142 10/3/uL (150-400); RBC DISTRIBUTION WIDTH 20.6 % (12.0-16.0); RED CELL COUNT 3.13 10/6/uL (4.0-5.6); WHITE BLOOD CELLS 8.2 10/3/uL (4.5-10.5)
[2016-11-16 05:36] LABS: MANUAL DIFF NO %
[2016-11-16 05:37] LABS: CALCIUM, SERUM 8.2 MG/DL (8.5-10.4); CHLORIDE, SERUM 111 MMOL/L (96-112); CO2 (CARBON DIOXIDE) 25 MMOL/L (24-34); CREATININE 0.64 MG/DL (0.55-1.02); GFR AFRICAN AMERICAN 96 ML/MIN (>=60); GFR NON AFRICAN AMERICAN 83 ML/MIN (>=60); GLUCOSE, SERUM 86 MG/DL (60-99); POTASSIUM, SERUM 3.6 MMOL/L (3.5-5.3); SODIUM, SERUM 146 MMOL/L (135-148)
[2016-11-16 05:40] LABS: BUN (BLOOD UREA NITROGEN) 11 MG/DL (6-23)
[2016-11-16 09:45] LABS: HEMATOCRIT 29.3 % (36.0-48.0); HEMOGLOBIN 9.8 g/dL (12.0-16.0)
[2016-11-16 16:17] LABS: HEMATOCRIT 29.7 % (36.0-48.0); HEMOGLOBIN 9.8 g/dL (12.0-16.0)
[2016-11-17 05:24] LABS: BASOPHILS 0.3 %; BASOPHILS ABSOLUTE 0.02 10/3/uL (0.0-0.16); EOSINOPHILS 1.4 %; HEMOGLOBIN 8.5 g/dL (12.0-16.0); IMMATURE GRANULOCYTES 0.3 %; IMMATURE GRANULOCYTES ABSOLUTE 0.02 10/3/uL (0.0-0.11); LYMPHOCYTES 21.8 %; LYMPHOCYTES ABSOLUTE 1.56 10/3/uL (0.67-4.30); MEAN CORPUS HGB CONC 32.7 g/dL (32.0-36.0); MEAN CORPUSCULAR HEMOGLOB 29.5 pg (26.0-34.0); MEAN CORPUSCULAR VOLUME 90.3 fL (80-100); MEAN PLATELET VOLUME 9.8 fL (9.2-13.0); MONOCYTES 12.5 %; MONOCYTES ABSOLUTE 0.89 10/3/uL (0.21-1.20); NEUTROPHILS 63.7 %; NEUTROPHILS ABSOLUTE 4.55 10/3/uL (2.02-8.40); PLATELET COUNT 147 10/3/uL (150-400); RED CELL COUNT 2.88 10/6/uL (4.0-5.6); WHITE BLOOD CELLS 7.1 10/3/uL (4.5-10.5)
[2016-11-17 05:28] LABS: MANUAL DIFF NO %
[2016-11-17 05:39] LABS: A/G RATIO 1.1 (0.7-1.9); ALBUMIN 2.4 G/DL (3.5-5.0); BUN (BLOOD UREA NITROGEN) 9 MG/DL (6-23); CALCIUM, SERUM 7.9 MG/DL (8.5-10.4); CHLORIDE, SERUM 110 MMOL/L (96-112); CO2 (CARBON DIOXIDE) 24 MMOL/L (24-34); CREATININE 0.61 MG/DL (0.55-1.02); GFR AFRICAN AMERICAN 98 ML/MIN (>=60); GFR NON AFRICAN AMERICAN 84 ML/MIN (>=60); GLOBULIN 2.2 G/DL (2.5-4.1); GLUCOSE, SERUM 86 MG/DL (60-99); POTASSIUM, SERUM 3.3 MMOL/L (3.5-5.3); SGOT(AST) 16 U/L (5-40); SGPT(ALT) 14 U/L (5-65); SODIUM, SERUM 145 MMOL/L (135-148); TOTAL BILIRUBIN 0.3 MG/DL (0-1.2); TOTAL PROTEIN 4.6 G/DL (6.0-8.5)
[2016-11-17 05:42] LABS: ALKALINE PHOSPHATASE 38 U/L (45-117)
[2016-11-18 06:19] LABS: BASOPHILS 0.1 %; BASOPHILS ABSOLUTE 0.01 10/3/uL (0.0-0.16); EOSINOPHILS 3.4 %; EOSINOPHILS ABSOLUTE 0.26 10/3/uL (0.0-0.53); HEMATOCRIT 27.1 % (36.0-48.0); IMMATURE GRANULOCYTES 0.4 %; IMMATURE GRANULOCYTES ABSOLUTE 0.03 10/3/uL (0.0-0.11); LYMPHOCYTES 20.3 %; LYMPHOCYTES ABSOLUTE 1.56 10/3/uL (0.67-4.30); MEAN CORPUS HGB CONC 33.2 g/dL (32.0-36.0); MEAN CORPUSCULAR HEMOGLOB 29.8 pg (26.0-34.0); MEAN CORPUSCULAR VOLUME 89.7 fL (80-100); MEAN PLATELET VOLUME 9.5 fL (9.2-13.0); MONOCYTES 10.9 %; MONOCYTES ABSOLUTE 0.84 10/3/uL (0.21-1.20); NEUTROPHILS 64.9 %; NEUTROPHILS ABSOLUTE 4.99 10/3/uL (2.02-8.40); PLATELET COUNT 139 10/3/uL (150-400); RBC DISTRIBUTION WIDTH 19.3 % (12.0-16.0); RED CELL COUNT 3.02 10/6/uL (4.0-5.6); WHITE BLOOD CELLS 7.7 10/3/uL (4.5-10.5)
[2016-11-18 06:25] LABS: MANUAL DIFF NO %
[2016-11-18 06:42] LABS: ALBUMIN 2.4 G/DL (3.5-5.0); ALKALINE PHOSPHATASE 41 U/L (45-117); BUN (BLOOD UREA NITROGEN) 6 MG/DL (6-23); CALCIUM, SERUM 7.8 MG/DL (8.5-10.4); CHLORIDE, SERUM 107 MMOL/L (96-112); CO2 (CARBON DIOXIDE) 27 MMOL/L (24-34); CREATININE 0.64 MG/DL (0.55-1.02); GFR AFRICAN AMERICAN 96 ML/MIN (>=60); GFR NON AFRICAN AMERICAN 83 ML/MIN (>=60); GLOBULIN 2.5 G/DL (2.5-4.1); GLUCOSE, SERUM 80 MG/DL (60-99); PHOSPHORUS, SERUM 2.6 MG/DL (2.5-4.5); POTASSIUM, SERUM 3.4 MMOL/L (3.5-5.3); SGOT(AST) 18 U/L (5-40); SGPT(ALT) 14 U/L (5-65); SODIUM, SERUM 144 MMOL/L (135-148); TOTAL BILIRUBIN 0.4 MG/DL (0-1.2); TOTAL PROTEIN 4.9 G/DL (6.0-8.5)
== END 2016-11-18 14:48 | disposition hospice, home (50) | DRG 393 ==
LOC: ER 13:10 → MIC 14:31 → IMCU 11-15 20:16
PROVIDERS: Emergency Medicine; Hospitalist; Internal Medicine Critical Care Medicine; Internal Medicine Pulmonary Disease; Nurse Practitioner Family
PROC: 02HV33Z Insertion of Infusion Device into Superior Vena Cava, Percutaneous Approach (ICD-10-PCS; principal; 2016-11-12)
PROC: 4A02X4A Measurement of Cardiac Electrical Activity, Guidance, External Approach (ICD-10-PCS; 2016-11-12)
PROC: 30233N1 Transfusion of Nonautologous Red Blood Cells into Peripheral Vein, Percutaneous Approach (ICD-10-PCS; 2016-11-12)
PROC: 0W3P8ZZ Control Bleeding in Gastrointestinal Tract, Via Natural or Artificial Opening Endoscopic (ICD-10-PCS; 2016-11-13)
PROC: 3E0G8GC Introduction of Other Therapeutic Substance into Upper GI, Via Natural or Artificial Opening Endoscopic (ICD-10-PCS; 2016-11-13)
PROC: 0DBP8ZX Excision of Rectum, Via Natural or Artificial Opening Endoscopic, Diagnostic (ICD-10-PCS; 2016-11-13)
DX: K55.9 Vascular disorder of intestine, unspecified (principal); R57.1 Hypovolemic shock; N39.0 Urinary tract infection, site not specified; F03.90 Unspecified dementia, unspecified severity, without behavioral disturbance, psychotic disturbance, mood disturbance, and anxiety; I10 Essential (primary) hypertension; E11.9 Type 2 diabetes mellitus without complications; B96.20 Unspecified Escherichia coli [E. coli] as the cause of diseases classified elsewhere; K92.2 Gastrointestinal hemorrhage, unspecified; D62 Acute posthemorrhagic anemia; E03.9 Hypothyroidism, unspecified
CPT/HCPCS: 36415; 36430; 36569; 71010; 74000; 80048; 80053; 80185; 81001; 82533; 82962; 83605; 83735; 84100; 84132; 84145; 84484; 85014; 85018; 85025; 85610; 85730; 86850; 86900; 86901; 86920; 87077; 87086; 87186; 87493; 87493-59; 87641; 88305; 93005; 93970; 93971; 93975; 96361; 96374; 99285; A9270-GY; C1751; C1894; C9113; J0360; J0690; J1170; J1630; J1956; J2405; J2543; J3486; P9016; Q2009